=== PATIENT | male | born 1945 | race American Indian/Alaskan Native ===

== ENCOUNTER 2017-08-07 08:39 | Outpatient (CLI) | payer MEDICARE ==
--- NOTE | 2017-08-07 09:17 | XRay Report ---
RIGHT CALCANEUS, 2 VIEWS History: Fracture of right calcaneus. Findings: Subtle vertical and medial fracture lines through the mid to posterior calcaneus appear unchanged in position and alignment since 07/13/17. No significant calcified callus is identified at this time. Soft tissue swelling has decreased. Impression: No change in the right calcaneus fracture since 07/13/17.
== END 2017-08-07 08:40 | disposition home or self-care (01) ==
LOC: XRAY 08:39
PROVIDERS: ATTEND Orthopaedic Surgery
DX: S92.001A Unspecified fracture of right calcaneus, initial encounter for closed fracture (principal); X58.XXXA Exposure to other specified factors, initial encounter; Y93.89 Activity, other specified; Y92.89 Other specified places as the place of occurrence of the external cause; Y99.8 Other external cause status

== ENCOUNTER 2018-11-10 09:54 | Observation (INO) | payer MEDICARE ==
[2018-11-10 11:07] LABS: Basophils % (Auto) 0.5 % (0.0-1.8); Eosinophils # (Auto) 0.3 K/mm3 (0.0-0.4); Eosinophils % (Auto) 4.7 % (0.0-4.3); Hematocrit 35.6 % (35.5-45.6); Hemoglobin 11.8 gm/dl (11.8-15.2); Lymphocytes # (Auto) 1.7 K/mm3 (1.2-5.4); Lymphocytes % (Auto) 30.1 % (13.4-35.0); Mean Corpuscular HGB Conc 33 % (32-34); Mean Corpuscular Volume 99 fl (84-94); Monocytes # (Auto) 0.4 K/mm3 (0.0-0.8); Monocytes % (Auto) 7.2 % (0.0-7.3); Platelet Count 127 K/mm3 (140-440); Red Cell Distribution Width 13.8 % (13.2-15.2)
[2018-11-10 11:20] LABS: INR 0.93 (0.87-1.13)
[2018-11-10 11:21] LABS: Partial Thromboplastin Time 25.2 Sec. (24.2-36.6)
[2018-11-10 11:23] LABS: BUN/Creatinine Ratio 20; Blood Urea Nitrogen 16 mg/dL (9-20); Calcium 8.6 mg/dL (8.4-10.2); Hemolysis Index 9
--- NOTE | 2018-11-10 12:19 | Anesthesia Consultation ---
Anesthesia Consult and Med Hx Date of service: 11/10/18 - Airway Anesthetic Teeth Evaluation: Poor (2 remaining teeth, none loose) ROM Head & Neck: Adequate Mental/Hyoid Distance: Adequate Mallampati Class: Class II Intubation Access Assessment: Probably Good - Pulmonary Exam CTA: Yes - Cardiac Exam Cardiac Exam: RRR - Pre-Operative Health Status ASA Pre-Surgery Classification: ASA4 Proposed Anesthetic Plan: MAC - Pulmonary Hx Smoking: Yes (current smoker) Hx Asthma: No SOB: Yes (chronic; symptoms at baseline today) COPD: No Home Oxygen Therapy: No - Cardiovascular System Hx Hypertension: Yes (last dose antihypertensives 11/09/18) Hx Coronary Artery Disease: Yes Hx Heart Attack/AMI: Yes (posterior STEMI 09/2017) Hx Percutaneous Transluminal Coronary Angioplasty (PTCA): Yes (BMS to RCA in 09/2017. Last dose plavix 11/09/18) Hx Pacemaker: Yes (placed 10/20/18) Hx Internal Defibrillator: Yes - Central Nervous System Hx Seizures: Yes CVA: No Hx Psychiatric Problems: No - Gastrointestinal Hx Gastroesophageal Reflux Disease: No - Endocrine Hx Renal Disease: No Hx Liver Disease: Yes (HCV) Hx Insulin Dependent Diabetes: No Hx Non-Insulin Dependent Diabetes: No Hx Thyroid Disease: No - Hematic Hx Anemia: Yes (w/ chronic thrombocytopenia) - Other Systems Hx Obesity: No - Additional Comments Anesthesia Medical History Comments: No hx anesthetic complications. No change in health since last anesthetic on 10/20/18. Recent TTE shows EF 20%, normal RV function, mild concentric pericardial effusion. Scheduled for lead repositioning under MAC.
--- NOTE | 2018-11-10 12:20 | Anesthesia Day of Surgery ---
Anesthesia Day of Surgery - Day of Surgery Patient Examined: Yes Patient H&P Reviewed: Yes Patient is NPO: Yes
[2018-11-10] MEDS ORDERED: D50W (25GM) Syringe IV ONE ×2 (12:50→12:51)
[2018-11-10] MEDS ORDERED: NACL 0.9% 1,000 ML, .VANCOMYCIN VIAL 1,000 MG IR ONE (13:17)
[2018-11-10] MEDS ORDERED: NACL 0.9% 500 ML IR ONE ×3 (13:34→16:39)
[2018-11-10] MEDS ORDERED: ANCEF/STERILE WATER 2 GM/20 ML 2 GM/20 ML SYRINGE IV ONE (13:35)
[2018-11-10] MEDS ORDERED: NACL 0.45% 1000 ML 1,000 ML IV SCH (14:00)
[2018-11-10] MEDS ORDERED: VERSED ONE (14:03)
[2018-11-10] MEDS ORDERED: DILAUDID ONE (14:03)
[2018-11-10] MEDS ORDERED: DIPRIVAN 10 MG/ML IV ONE ×3 (14:04)
[2018-11-10] MEDS: MARCAINE 0.5% INFILTRATI ONE ×2 (14:45→16:05)
[2018-11-10] MEDS: XYLOCAINE 1% 20 mL ONE ×2 (14:45→16:05)
[2018-11-10] MEDS ORDERED: NACL 0.9% 500 ML 500 ML ONE (14:46)
[2018-11-10] MEDS ORDERED: .VANCOMYCIN VIAL 1,000 MG in NACL 0.9% 1,000 ML IRRIGATION ONE (14:50)
[2018-11-10] MEDS: NORCO 5/325 PO PRN (19:14)
--- NOTE | 2018-11-10 21:52 | XRay Report ---
PROCEDURE: XR CHEST 1V AP TECHNIQUE: A portable upright view of the chest was obtained. HISTORY: Pacemaker Postop COMPARISONS: 10/20/2018 FINDINGS: The heart is mild to moderately enlarged. There is generalized interstitial prominence. Pleural fluid is not seen. There is a pacemaker overlying the left chest wall with the leads in the right atrium a nd right ventricle. The skeletal structures reveal generalized osteoporosis. IMPRESSION: Cardiomegaly. Chronic lung changes.. The left-sided pacemaker and leads appear in proper position. This document is electronically signed by Billy Johnson MD., November 10 2018 09:49:26 PM ET
[2018-11-11] MEDS ORDERED: VANCOMYCIN/NS 1 GM/250 ML 1 GM/250 ML BAG IV SCH (02:00)
[2018-11-11] MEDS: NORCO 5/325 PO PRN ×2 (04:05→10:17)
--- NOTE | 2018-11-11 09:47 | Short Stay Summary ---
Short Stay Documentation Date of service: 11/11/18 - History H&P: obtained from office - Allergies and Medications Current Medications: Allergies No Known Allergies Allergy (Verified 09/17/17 23:33) Home Medications Medication Instructions Recorded Confirmed Last Taken Type Phenytoin Chew [Dilantin Chew] 250 mg PO DAILY 09/18/17 11/10/18 11/09/18 History 250mg Primidone [Mysoline] 250 mg PO QHS 09/18/17 11/10/18 11/09/18 History 250mg Arformoterol Nebu [Brovana Nebu] 15 mcg IH Q12HRT #120 ml 09/25/17 11/10/18 Unknown Rx Budesonide [Pulmicort Respules] 0.5 mg IH Q12HRT #30 nebu 09/25/17 11/10/18 10/19/18 Rx 1 puff Aspirin [Aspirin TAB] 81 mg PO QDAY 10/20/18 11/10/18 11/09/18 History 81mg AtorvaSTATin [Lipitor] 20 mg PO QHS 11/10/18 11/10/18 11/09/18 History 20mg Clopidogrel Bisulfate [Clopidogrel] 75 mg PO DAILY 11/10/18 11/10/18 11/09/18 History 75mg Furosemide [Lasix TAB] 20 mg PO DAILY 11/10/18 11/10/18 Unknown History Losartan Potassium 50 mg PO DAILY 11/10/18 11/10/18 11/09/18 History 50mg Metoprolol [Lopressor TAB] 50 mg PO BID 11/10/18 11/10/18 11/09/18 History 50mg Spironolactone 25 mg PO DAILY 11/10/18 11/10/18 Unknown History Active Medications Acetaminophen/Hydrocodone Bitart ([place] 5/325) 1 each PO Q6H PRN PRN Reason: Pain, Moderate (4-6) Last Admin: 11/11/18 04:05 Dose: 1 each Documented by: Sodium Chloride (Nacl 0.45% 1000 Ml) 1,000 mls @ 42 mls/hr IV DIRECT VANESSA Last Admin: 11/10/18 13:26 Dose: 42 mls/hr Documented by: - Physical exam General appearance: no acute distress Integumentary: other (left pectoralis AICD implantation site pressure dressing removed, site covered with telfa and tegaderm dressing, some scant old blood on telfa, no evidence of bleeding or hematoma) HEENT: Atraumatic, PERRLA Heart: Regular rate, Normal S1, Normal S2 Gastrointestinal: normal, normoactive bowel sounds Extremities: no ischemia, pulses intact, pulses symmetrical Neurological: Normal gait, Normal speech, Strength at 5/5 X4 ext - Brief post op/procedure progress note Date of procedure: 11/10/18 Pre-op diagnosis: CMP Post-op diagnosis: same Procedure: AICD lead revision - see operative report Condition: stable - Hospital course Hospital course: pt presented for scheduled AICD lead revision and successfully underwent procedure. He was admitted for observation overnight and has remained clinically and hemodynamically stable throughout procedure and recovery. Post-procedure CXR with NAF, device interrogation this AM showed normal device function. Pt is medically stable for discharge today. - Disposition Condition at discharge: Good Disposition: DC-[id number] TO HOME OR SELFCARE - Discharge Diagnoses (1) Ischemic cardiomyopathy Status: Chronic (2) Automatic implantable cardioverter-defibrillator in situ Status: Chronic (3) HTN (hypertension) Status: Chronic (4) CAD (coronary artery disease) Status: Chronic Qualifiers: Coronary Disease-Associated Artery/Lesion type: [place] artery [place] vs. transplanted heart: [place] heart Associated angina: with unstable angina Qualified Code(s): I25.110 - Atherosclerotic heart disease of [place] coronary artery with unstable angina pectoris (5) Stented coronary artery Status: Chronic (6) Diabetes mellitus Status: Chronic Short Stay Discharge Plan Activity: other (as per discharge instructions) Diet: low fat, low cholesterol, low salt, diabetic Wound: other (as per discharge instructions) Additional Instructions: Resume ASA on 11/14/2018 Resume Plavix on 11/16/2018 Follow up with: ELIZA SAMAYOA MD, PHD [Primary Care Provider] - 7 Days JUAN PABLO MOSHER MD [Staff Physician] - 7 Days (post-op check in [place] office on 11/20/2018 @ 9:30AM) Prescriptions: cephALEXin [Keflex] 500 mg PO Q12HR 10 Days #20 cap HYDROcodone/APAP 5-325 [[place] 5-325 mg TAB] 1 each PO Q6H PRN #10 tablet PRN Reason: Pain, Moderate (4-6)
[2018-11-11 12:04] VITALS: BP 129/74
== END 2018-11-11 12:41 | disposition home or self-care (01) ==
LOC: CATHLABREC 09:54 → 4A 14:16
PROVIDERS: ADMIT Internal Medicine Cardiovascular Disease; ATTEND Internal Medicine Cardiovascular Disease
DX: I25.5 Ischemic cardiomyopathy (principal); I25.10 Atherosclerotic heart disease of native coronary artery without angina pectoris; I42.0 Dilated cardiomyopathy; E78.5 Hyperlipidemia, unspecified; I10 Essential (primary) hypertension; F17.210 Nicotine dependence, cigarettes, uncomplicated; E11.9 Type 2 diabetes mellitus without complications
CPT/HCPCS: 33215; 36415; 71045; 80048; 82962; 85025; 85610; 85730; 93005; 93010; 96365; 96375; C1892; G0378; J0690; J1170; J2250; J2704; J3370; J7030; J7040; 96374; Q9967

== ENCOUNTER 2018-12-08 09:27 | Day surgery (SDC) | payer MEDICARE ==
[2018-12-08 10:12] VITALS: BP 138/81
--- NOTE | 2018-12-15 13:17 | Cardiac Catherization Report ---
TYPE OF PROCEDURE: Fluoroscopy. DESCRIPTION OF PROCEDURE: The patient was brought to the electrophysiology laboratory. Images were taken in the PEREZ, EVELINE, and AP projections. There was no obvious lead dislodgement noted. COMPLICATIONS: None. 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 2.No obvious right ventricular lead dislodgement. JOB# [id number] MMW/NTS
== END 2018-12-08 12:15 | disposition home or self-care (01) ==
LOC: CATHLABREC 09:27
PROVIDERS: ATTEND Internal Medicine Cardiovascular Disease
DX: I42.0 Dilated cardiomyopathy (principal); D64.9 Anemia, unspecified; I25.2 Old myocardial infarction; E11.9 Type 2 diabetes mellitus without complications; F17.210 Nicotine dependence, cigarettes, uncomplicated; I25.10 Atherosclerotic heart disease of native coronary artery without angina pectoris; J44.9 Chronic obstructive pulmonary disease, unspecified; I10 Essential (primary) hypertension; E78.00 Pure hypercholesterolemia, unspecified; Z79.899 Other long term (current) drug therapy; Z79.82 Long term (current) use of aspirin; Z95.5 Presence of coronary angioplasty implant and graft; Z87.19 Personal history of other diseases of the digestive system; Z86.19 Personal history of other infectious and parasitic diseases; Z95.810 Presence of automatic (implantable) cardiac defibrillator
CPT/HCPCS: 76000